=== PATIENT | female | born 1955 | race Caucasian/White ===

== ENCOUNTER → 2016-12-18 | Day surgery (SDC) | payer OTHER ==
[~2016-12-18] VITALS: Ht 171.4 cm; Wt 87.0 kg
[~2016-12-18] MED LIST: 0.9% Sodium Chloride 1,000 ML IV SCH; ALEN35TA31; NITR100C PO; SYN.15T2 PO; Sodium Chloride LOK Flush 10 mL Syringe IV PRN; fentaNYL-PF 50 mCg/mL 2 mL Inj IVPUSH PRN
[2016-12-18 08:59] VITALS: BP 116/74; PULSE 55; RESP 16; O2SAT 94
[2016-12-18 10:17] VITALS: BP 110/65; PULSE 55; RESP 15; O2SAT 99
[2016-12-18 10:29] VITALS: BP 108/64; PULSE 58; RESP 15; O2SAT 99
--- NOTE | 2016-12-18 17:44 | ENDO ---
[address] [address] ENDOSCOPY PROCEDURE PATIENT: HEMALATHA VALDOVINOS : 1955 MR#: [id number] ADMIT: 12/18/2016 JOB ID: [id number] PRIMARY PROVIDER: Rosalino Franco MD PROCEDURE: Colonoscopy. INDICATIONS: A 61-year-old female with a personal history of colon polyps returning for surveillance. EQUIPMENT: PCF H 180 AL. SEDATION: 1. 3 mg Versed. 2. 75 mcg fentanyl. COMPLICATIONS: None identified. BOWEL PREPARATION: Excellent. PROCEDURE INFORMATION: After the risks and benefits were explained, written and verbal informed consent was obtained. The patient was brought into the endoscopy suite and placed into the left lateral decubitus position. Sedation was achieved using the above-stated medications with the addition of oxygen via nasal cannula. A digital rectal examination was accomplished and no significant pathology was appreciated. The scope was introduced into the rectum and advanced under direct visualization to the level of the cecum, as identified by the appendiceal orifice and ileocecal valve. The scope was slowly withdrawn to carefully examine the mucosa for any defects or lesions. Retroflexed views were avoided in the rectum. Multiple direct views were made through the dentate line for exclusion of pathology. The colon was decompressed. The scope removed from the patient who tolerated the procedure well. FINDINGS: No significant polyps, mass lesions, or inflammatory features identified throughout. ENDOSCOPIC DIAGNOSES: Visually unremarkable colonoscopy. RECOMMENDATIONS: Considering personal history of colon polyps, repeat colonoscopy is suggested for five years' time.
== END | disposition home or self-care (01) ==
LOC: END 00:04
PROVIDERS: ATTEND Internal Medicine Gastroenterology
DX: Z12.11 Encounter for screening for malignant neoplasm of colon (principal); E03.9 Hypothyroidism, unspecified; Z86.010 Personal history of colon polyps; Z79.899 Other long term (current) drug therapy
CPT/HCPCS: 45378; 99153; G0500; J2250; J3010; J7030